=== PATIENT | female | born 1975 | race Caucasian/White ===

== ENCOUNTER 2023-08-02 12:12 | Emergency (ER) | payer OTHER ==
[~2023-08-02] VITALS: Ht 157.5 cm; Wt 76.5 kg
[2023-08-02] MEDS ORDERED: VYVA50CA4 PO (12:36)
[2023-08-02 12:57] LABS: BASO % 0.4 % (0.0-1.0); EOS # 0.1 10^3/uL (0.0-0.5); EOS % 0.7 % (0.0-3.0); HEMATOCRIT 35.1 % (36.0-47.0); HEMOGLOBIN 11.9 g/dl (12.0-15.5); LYMPH # 1.4 10^3/uL (1.5-5.0); LYMPH % 15.5 % (24.0-44.0); MEAN CORPUSCULAR HEMOGLOBIN 29.6 pg (27.0-33.0); MEAN CORPUSCULAR HGB CONC 33.9 g/dl (32.0-36.5); MEAN CORPUSCULAR VOLUME 87.3 fl (80.0-96.0); MONO # 0.4 10^3/uL (0.0-0.8); MONO % 4.8 % (2.0-8.0); NEUTROPHILS # 7.2 10^3/uL (1.5-8.5); NEUTROPHILS % 78.1 % (36.0-66.0); PLATELET COUNT, AUTOMATED 289 10^3/uL (150-450); RED BLOOD COUNT 4.02 10^6/uL (4.00-5.40); WHITE BLOOD COUNT 9.2 10^3/uL (4.0-10.0)
[2023-08-02 13:25] LABS: ALBUMIN 3.3 G/DL (3.2-5.2); BILIRUBIN,DIRECT 0.2 MG/DL (<0.4); BILIRUBIN,TOTAL 0.5 MG/DL (0.3-1.2); TOTAL PROTEIN 5.9 G/DL (5.7-8.2)
[2023-08-02] MEDS: METOCLOPRAMIDE INJ 10MG/2ML VIAL IV ONE (13:51)
[2023-08-02] MEDS: KETOROLAC 30 MG/ML 1ML VIAL IV ONE (13:51)
[2023-08-02] MEDS: NS 1,000 ML IV ONE (13:52)
[2023-08-02 14:14] LABS: RSV AMPLIFICATION NEGATIVE (NEGATIVE)
[2023-08-02 15:30] VITALS: BP 110/65; TEMP 97.5; O2SAT 97
[2023-08-02] MEDS: SCOPOLAMINE 1MG TRANSDERMAL PATCH TOP ONE (15:31)
== END 2023-08-02 15:43 | disposition home or self-care (01) ==
LOC: EDBD 12:12 → M ED 12:12
DX: R11.2 Nausea with vomiting, unspecified (principal); R51.9 Headache, unspecified; F90.9 Attention-deficit hyperactivity disorder, unspecified type; Z79.899 Other long term (current) drug therapy
CPT/HCPCS: 80047; 80076; 83690; 84702; 85025; 87631; 96361; 96374; 99284; J1885; J2765